=== PATIENT | male | born 1975 | race Hispanic/Latino ===

== ENCOUNTER → 2018-07-25 | Outpatient (CLI) | payer MEDICAID ==
[2018-07-25 14:22] VITALS: BP 149/94
== END | disposition home or self-care (01) ==
LOC: WHH 09:55
PROVIDERS: ATTEND Podiatrist Foot & Ankle Surgery
DX: E11.621 Type 2 diabetes mellitus with foot ulcer (principal); L97.521 Non-pressure chronic ulcer of other part of left foot limited to breakdown of skin; I10 Essential (primary) hypertension
CPT/HCPCS: 73630; 82948; 99205; A4450; A4649; A6213; L3260; G0463

== ENCOUNTER → 2018-08-08 | Outpatient (CLI) | payer MEDICAID ==
[2018-08-08 14:06] VITALS: BP 139/87
== END | disposition home or self-care (01) ==
LOC: WHH 10:00
PROVIDERS: ATTEND Podiatrist Foot & Ankle Surgery
DX: E11.621 Type 2 diabetes mellitus with foot ulcer (principal); L97.522 Non-pressure chronic ulcer of other part of left foot with fat layer exposed; E11.42 Type 2 diabetes mellitus with diabetic polyneuropathy; E11.610 Type 2 diabetes mellitus with diabetic neuropathic arthropathy; I10 Essential (primary) hypertension
CPT/HCPCS: 11042; A4649

== ENCOUNTER → 2018-08-15 | Outpatient (CLI) | payer MEDICAID ==
[2018-08-15 13:47] VITALS: BP 127/82
== END | disposition home or self-care (01) ==
LOC: WHH 10:30
PROVIDERS: ATTEND Podiatrist Foot & Ankle Surgery
DX: E11.621 Type 2 diabetes mellitus with foot ulcer (principal); L97.522 Non-pressure chronic ulcer of other part of left foot with fat layer exposed; E11.42 Type 2 diabetes mellitus with diabetic polyneuropathy; E11.610 Type 2 diabetes mellitus with diabetic neuropathic arthropathy; I10 Essential (primary) hypertension
CPT/HCPCS: 11042; A4649

== ENCOUNTER → 2018-08-22 | Outpatient (CLI) | payer MEDICAID ==
[2018-08-22 13:55] VITALS: BP 139/82
== END | disposition home or self-care (01) ==
LOC: WHH 10:00
PROVIDERS: ATTEND Podiatrist Foot & Ankle Surgery
DX: E11.621 Type 2 diabetes mellitus with foot ulcer (principal); L97.521 Non-pressure chronic ulcer of other part of left foot limited to breakdown of skin; E11.42 Type 2 diabetes mellitus with diabetic polyneuropathy; E11.610 Type 2 diabetes mellitus with diabetic neuropathic arthropathy; I10 Essential (primary) hypertension
CPT/HCPCS: 97597; A4649

== ENCOUNTER → 2018-08-29 | Outpatient (CLI) | payer MEDICAID ==
[2018-08-29 13:51] VITALS: BP 142/90
== END | disposition home or self-care (01) ==
LOC: WHH 10:40
PROVIDERS: ATTEND Podiatrist Foot & Ankle Surgery
DX: E11.621 Type 2 diabetes mellitus with foot ulcer (principal); L97.521 Non-pressure chronic ulcer of other part of left foot limited to breakdown of skin; E11.42 Type 2 diabetes mellitus with diabetic polyneuropathy; E11.610 Type 2 diabetes mellitus with diabetic neuropathic arthropathy; I10 Essential (primary) hypertension
CPT/HCPCS: 99214; A4649

== ENCOUNTER → 2018-09-12 | Outpatient (CLI) | payer MEDICAID ==
[2018-09-12 14:11] VITALS: BP 121/79
== END | disposition home or self-care (01) ==
LOC: WHH 10:45
PROVIDERS: ATTEND Podiatrist Foot & Ankle Surgery
DX: E11.621 Type 2 diabetes mellitus with foot ulcer (principal); L97.521 Non-pressure chronic ulcer of other part of left foot limited to breakdown of skin; E11.42 Type 2 diabetes mellitus with diabetic polyneuropathy; E11.610 Type 2 diabetes mellitus with diabetic neuropathic arthropathy; I10 Essential (primary) hypertension
CPT/HCPCS: 97597; 99214

== ENCOUNTER 2019-07-22 15:30 | Emergency (ER) | payer MEDICAID ==
[2019-07-22] MEDS ORDERED: SODIUM CHLORIDE IRRIG SOLUTION 1,000 ML IR ONE (15:31)
[2019-07-22] MEDS ORDERED: SODIUM CHLORIDE 0.9% 500ML 500 ML IV ONE (15:31)
[2019-07-22] MEDS ORDERED: MAG HYDROX/AL HYDROX/SIMETH ES 30 ML SUSP UDCUP ONE (15:48)
[2019-07-22] MEDS ORDERED: LIDOCAINE HCL 2% VISCOUS 15 ML UDCUP ONE (15:48)
[2019-07-22 16:15] LABS: BASOPHILS % (AUTO) 0.4 % (0.0-5.0); EOSINOPHILS % (AUTO) 0.7 % (0.0-8.0); HEMATOCRIT 35.6 % (42-54); LYMPHOCYTES % (AUTO) 33.1 % (21.0-51.0); MEAN CORPUSCULAR HEMOGLOBIN 30.9 pg (27.0-33.0); MEAN CORPUSCULAR HGB CONC 35.1 g/dL (32.0-36.0); MEAN CORPUSCULAR VOLUME 87.9 fL (79-99); MONOCYTES % (AUTO) 7.9 % (3.0-13.0); NEUTROPHILS % (AUTO) 57.8 % (40.0-77.0); PLATELET COUNT (AUTO) 212 K/uL (130-400); RED BLOOD CELL COUNT(AUTO) 4.05 MIL/uL (4.50-6.20); RED CELL DISTRIBUTION WIDTH 11.9 % (11.0-15.5); WHITE BLOOD COUNT (AUTO) 7.3 K/uL (4.8-10.8)
[2019-07-22] MEDS ORDERED: FAMOTIDINE/PF 20 MG/2 ML VIAL IV ONE (16:23)
[2019-07-22 16:32] LABS: ALBUMIN 3.3 g/dL (3.5-5.0); APPEARANCE,URINE Clear (CLEAR); BILIRUBIN,TOTAL 0.5 mg/dL (0.2-1.0); BILIRUBIN,URINE Negative (NEGATIVE); COLOR,URINE Yellow (YELLOW); CREATININE 1.3 mg/dL (0.5-1.5); GLUCOSE, URINE (UA) >=1000 mg/dL (NEGATIVE); KETONES,URINE Trace mg/dL (NEGATIVE); LEUKOCYTE ESTERASE ,URINE Negative (NEGATIVE); NITRATE,URINE Negative (NEGATIVE); OCCULT BLOOD,URINE Nonhemolyzed Trace (NEGATIVE); POTASSIUM 4.1 mmol/L (3.5-5.1); PROTEIN,URINE 300 mg/dL (NEGATIVE); TOTAL PROTEIN, SERUM 7.2 g/dL (6.0-8.3)
[2019-07-22 16:38] LABS: AMPHET/METH SCREEN,URINE NEGATIVE (NEGATIVE); BARBITURATE SCREEN, URINE NEGATIVE (NEGATIVE); BENZODIAZEPINES SCREEN,URINE POSITIVE (NEGATIVE); CANNABINOID SCREEN,URINE POSITIVE (NEGATIVE); COCAINE SCREEN,URINE NEGATIVE (NEGATIVE); OPIATE SCREEN,URINE NEGATIVE (NEGATIVE); PHENCYCLIDINE SCREEN,URINE NEGATIVE (NEGATIVE)
[2019-07-22 16:40] LABS: BACTERIA,URINE Rare /HPF (None Seen); RAPID GROUP A STREP NEGATIVE (NEGATIVE); WBC,URINE 0-1 /HPF (0-1)
[2019-07-22 16:41] LABS: SQUAMOUS EPITHELIAL CELL,UR Rare /HPF (0-2); YEAST,URINE BUDDING Rare /HPF (None Seen)
== END 2019-07-22 20:02 | disposition home or self-care (01) ==
LOC: EDH 15:30
DX: K29.00 Acute gastritis without bleeding (principal); E11.9 Type 2 diabetes mellitus without complications; I10 Essential (primary) hypertension; Z87.891 Personal history of nicotine dependence
CPT/HCPCS: 36415; 71045; 80053; 80305; 81001; 83880; 84484; 85025; 87804 ×2; 87880; 93005; 96361; 96374; 99285; J3490; J7040

== ENCOUNTER → 2019-11-06 | Outpatient (CLI) | payer MEDICAID ==
[~2019-11-06] MED LIST: LIDOCAINE HCL 4% LTA SOL 4 ML VIAL TP ONE
== END | disposition home or self-care (01) ==
LOC: WHH 08:18
PROVIDERS: ATTEND Podiatrist Foot & Ankle Surgery
DX: E11.621 Type 2 diabetes mellitus with foot ulcer (principal); L97.512 Non-pressure chronic ulcer of other part of right foot with fat layer exposed; E11.22 Type 2 diabetes mellitus with diabetic chronic kidney disease; I12.9 Hypertensive chronic kidney disease with stage 1 through stage 4 chronic kidney disease, or unspecified chronic kidney disease; N18.9 Chronic kidney disease, unspecified; E11.42 Type 2 diabetes mellitus with diabetic polyneuropathy; I10 Essential (primary) hypertension; K21.9 Gastro-esophageal reflux disease without esophagitis; I25.10 Atherosclerotic heart disease of native coronary artery without angina pectoris; E78.2 Mixed hyperlipidemia; G56.00 Carpal tunnel syndrome, unspecified upper limb; Z87.891 Personal history of nicotine dependence
CPT/HCPCS: 11042; 73630; 87076; A6209

== ENCOUNTER → 2019-11-20 | Outpatient (CLI) | payer MEDICAID ==
[~2019-11-20] MED LIST changes: +ALBU2.5V2 IH; +ALPR1TAB2 PO; +ASPI-1005 PO; +ATOR20TA65 PO; +CLIN300C9 PO; +FERR324T4 PO; +IPRNEB IH; +LEVO500T89 PO; -LIDOCAINE HCL 4% LTA SOL 4 ML VIAL TP ONE; +LINA1TAB PO; +LOSA50TA2 PO
== END | disposition home or self-care (01) ==
LOC: WHH 08:55
PROVIDERS: ATTEND Podiatrist Foot & Ankle Surgery
DX: E11.621 Type 2 diabetes mellitus with foot ulcer (principal); L97.512 Non-pressure chronic ulcer of other part of right foot with fat layer exposed; E11.22 Type 2 diabetes mellitus with diabetic chronic kidney disease; I12.9 Hypertensive chronic kidney disease with stage 1 through stage 4 chronic kidney disease, or unspecified chronic kidney disease; N18.9 Chronic kidney disease, unspecified; E11.42 Type 2 diabetes mellitus with diabetic polyneuropathy; M20.11 Hallux valgus (acquired), right foot; K21.9 Gastro-esophageal reflux disease without esophagitis; I25.10 Atherosclerotic heart disease of native coronary artery without angina pectoris; E78.2 Mixed hyperlipidemia; G56.00 Carpal tunnel syndrome, unspecified upper limb; Z87.891 Personal history of nicotine dependence
CPT/HCPCS: 11042; A6207

== ENCOUNTER → 2019-12-25 | Outpatient (CLI) | payer MEDICAID ==
[~2019-12-25] MED LIST changes: -ALBU2.5V2 IH; -ASPI-1005 PO; -ATOR20TA65 PO; -FERR324T4 PO; -IPRNEB IH; -LOSA50TA2 PO
== END | disposition home or self-care (01) ==
LOC: WHH 09:00
PROVIDERS: ATTEND Podiatrist Foot & Ankle Surgery
DX: T87.89 Other complications of amputation stump (principal); E11.621 Type 2 diabetes mellitus with foot ulcer; L97.513 Non-pressure chronic ulcer of other part of right foot with necrosis of muscle; E11.69 Type 2 diabetes mellitus with other specified complication; M86.671 Other chronic osteomyelitis, right ankle and foot; E11.22 Type 2 diabetes mellitus with diabetic chronic kidney disease; I12.9 Hypertensive chronic kidney disease with stage 1 through stage 4 chronic kidney disease, or unspecified chronic kidney disease; N18.9 Chronic kidney disease, unspecified; E11.42 Type 2 diabetes mellitus with diabetic polyneuropathy; M20.11 Hallux valgus (acquired), right foot; K21.9 Gastro-esophageal reflux disease without esophagitis; I25.10 Atherosclerotic heart disease of native coronary artery without angina pectoris; E78.2 Mixed hyperlipidemia; G56.00 Carpal tunnel syndrome, unspecified upper limb; Z87.891 Personal history of nicotine dependence; Y83.5 Amputation of limb(s) as the cause of abnormal reaction of the patient, or of later complication, without mention of misadventure at the time of the procedure
CPT/HCPCS: 99214; A6209

== ENCOUNTER → 2020-01-01 | Outpatient (CLI) | payer MEDICAID | END | disposition home or self-care (01) | LOC: WHH 09:00 | PROVIDERS: ATTEND Podiatrist Foot & Ankle Surgery | DX: T87.89 Other complications of amputation stump (principal); E11.621 Type 2 diabetes mellitus with foot ulcer; L97.512 Non-pressure chronic ulcer of other part of right foot with fat layer exposed; E11.69 Type 2 diabetes mellitus with other specified complication; M86.671 Other chronic osteomyelitis, right ankle and foot; E11.22 Type 2 diabetes mellitus with diabetic chronic kidney disease; I12.9 Hypertensive chronic kidney disease with stage 1 through stage 4 chronic kidney disease, or unspecified chronic kidney disease; N18.9 Chronic kidney disease, unspecified; E11.42 Type 2 diabetes mellitus with diabetic polyneuropathy; M20.11 Hallux valgus (acquired), right foot; K21.9 Gastro-esophageal reflux disease without esophagitis; I25.10 Atherosclerotic heart disease of native coronary artery without angina pectoris; E78.2 Mixed hyperlipidemia; G56.00 Carpal tunnel syndrome, unspecified upper limb; Z87.891 Personal history of nicotine dependence; Y83.5 Amputation of limb(s) as the cause of abnormal reaction of the patient, or of later complication, without mention of misadventure at the time of the procedure | CPT/HCPCS: 97597; A6209 ==

== ENCOUNTER → 2020-01-08 | Outpatient (CLI) | payer MEDICAID | END | disposition home or self-care (01) | LOC: WHH 08:40 | PROVIDERS: ATTEND Podiatrist Foot & Ankle Surgery | DX: E11.621 Type 2 diabetes mellitus with foot ulcer (principal); L97.516 Non-pressure chronic ulcer of other part of right foot with bone involvement without evidence of necrosis; E11.69 Type 2 diabetes mellitus with other specified complication; M86.671 Other chronic osteomyelitis, right ankle and foot; E11.22 Type 2 diabetes mellitus with diabetic chronic kidney disease; I12.9 Hypertensive chronic kidney disease with stage 1 through stage 4 chronic kidney disease, or unspecified chronic kidney disease; N18.9 Chronic kidney disease, unspecified; E11.42 Type 2 diabetes mellitus with diabetic polyneuropathy; M20.11 Hallux valgus (acquired), right foot; K21.9 Gastro-esophageal reflux disease without esophagitis; I25.10 Atherosclerotic heart disease of native coronary artery without angina pectoris; E78.2 Mixed hyperlipidemia; G56.00 Carpal tunnel syndrome, unspecified upper limb; Z87.891 Personal history of nicotine dependence | CPT/HCPCS: 99214 ==

== ENCOUNTER → 2020-01-22 | Outpatient (CLI) | payer MEDICAID ==
[~2020-01-22] MED LIST changes: +LIDOCAINE HCL 2% JELLY 5 ML TP ONE
== END | disposition home or self-care (01) ==
LOC: WHH 08:45
PROVIDERS: ATTEND Podiatrist Foot & Ankle Surgery
DX: T87.89 Other complications of amputation stump (principal); E11.621 Type 2 diabetes mellitus with foot ulcer; L97.516 Non-pressure chronic ulcer of other part of right foot with bone involvement without evidence of necrosis; E11.69 Type 2 diabetes mellitus with other specified complication; M86.671 Other chronic osteomyelitis, right ankle and foot; E11.22 Type 2 diabetes mellitus with diabetic chronic kidney disease; I12.9 Hypertensive chronic kidney disease with stage 1 through stage 4 chronic kidney disease, or unspecified chronic kidney disease; N18.9 Chronic kidney disease, unspecified; E11.42 Type 2 diabetes mellitus with diabetic polyneuropathy; M20.11 Hallux valgus (acquired), right foot; K21.9 Gastro-esophageal reflux disease without esophagitis; I25.10 Atherosclerotic heart disease of native coronary artery without angina pectoris; E78.2 Mixed hyperlipidemia; G56.00 Carpal tunnel syndrome, unspecified upper limb; Z87.891 Personal history of nicotine dependence; Y83.5 Amputation of limb(s) as the cause of abnormal reaction of the patient, or of later complication, without mention of misadventure at the time of the procedure
CPT/HCPCS: 11042; 11045; A6207

== ENCOUNTER → 2020-01-29 | Outpatient (CLI) | payer MEDICAID ==
[~2020-01-29] MED LIST changes: -LIDOCAINE HCL 2% JELLY 5 ML TP ONE
== END | disposition home or self-care (01) ==
LOC: WHH 09:00
PROVIDERS: ATTEND Podiatrist Foot & Ankle Surgery
DX: T87.89 Other complications of amputation stump (principal); E11.621 Type 2 diabetes mellitus with foot ulcer; L97.516 Non-pressure chronic ulcer of other part of right foot with bone involvement without evidence of necrosis; E11.69 Type 2 diabetes mellitus with other specified complication; M86.671 Other chronic osteomyelitis, right ankle and foot; E11.22 Type 2 diabetes mellitus with diabetic chronic kidney disease; I12.9 Hypertensive chronic kidney disease with stage 1 through stage 4 chronic kidney disease, or unspecified chronic kidney disease; N18.9 Chronic kidney disease, unspecified; E11.42 Type 2 diabetes mellitus with diabetic polyneuropathy; M20.11 Hallux valgus (acquired), right foot; K21.9 Gastro-esophageal reflux disease without esophagitis; I25.10 Atherosclerotic heart disease of native coronary artery without angina pectoris; E78.2 Mixed hyperlipidemia; G56.00 Carpal tunnel syndrome, unspecified upper limb; Z87.891 Personal history of nicotine dependence; Y83.5 Amputation of limb(s) as the cause of abnormal reaction of the patient, or of later complication, without mention of misadventure at the time of the procedure
CPT/HCPCS: 99214; A6207

== ENCOUNTER → 2020-02-12 | Outpatient (CLI) | payer MEDICAID | END | disposition home or self-care (01) | LOC: WHH 09:15 | PROVIDERS: ATTEND Podiatrist Foot & Ankle Surgery | DX: T87.89 Other complications of amputation stump (principal); E11.621 Type 2 diabetes mellitus with foot ulcer; L97.516 Non-pressure chronic ulcer of other part of right foot with bone involvement without evidence of necrosis; E11.69 Type 2 diabetes mellitus with other specified complication; M86.671 Other chronic osteomyelitis, right ankle and foot; E11.22 Type 2 diabetes mellitus with diabetic chronic kidney disease; I12.9 Hypertensive chronic kidney disease with stage 1 through stage 4 chronic kidney disease, or unspecified chronic kidney disease; N18.9 Chronic kidney disease, unspecified; E11.42 Type 2 diabetes mellitus with diabetic polyneuropathy; M20.11 Hallux valgus (acquired), right foot; K21.9 Gastro-esophageal reflux disease without esophagitis; I25.10 Atherosclerotic heart disease of native coronary artery without angina pectoris; E78.5 Hyperlipidemia, unspecified; G56.00 Carpal tunnel syndrome, unspecified upper limb; Z87.891 Personal history of nicotine dependence; Y83.5 Amputation of limb(s) as the cause of abnormal reaction of the patient, or of later complication, without mention of misadventure at the time of the procedure | CPT/HCPCS: 11042; 11045; A6207 ==

== ENCOUNTER → 2020-02-19 | Outpatient (CLI) | payer MEDICAID | END | disposition home or self-care (01) | LOC: WHH 08:45 | PROVIDERS: ATTEND Podiatrist Foot & Ankle Surgery | DX: E11.621 Type 2 diabetes mellitus with foot ulcer (principal); L97.516 Non-pressure chronic ulcer of other part of right foot with bone involvement without evidence of necrosis; E11.69 Type 2 diabetes mellitus with other specified complication; M86.671 Other chronic osteomyelitis, right ankle and foot; E11.22 Type 2 diabetes mellitus with diabetic chronic kidney disease; I12.9 Hypertensive chronic kidney disease with stage 1 through stage 4 chronic kidney disease, or unspecified chronic kidney disease; N18.9 Chronic kidney disease, unspecified; E11.42 Type 2 diabetes mellitus with diabetic polyneuropathy; M20.11 Hallux valgus (acquired), right foot; K21.9 Gastro-esophageal reflux disease without esophagitis; I25.10 Atherosclerotic heart disease of native coronary artery without angina pectoris; E78.5 Hyperlipidemia, unspecified; G56.00 Carpal tunnel syndrome, unspecified upper limb; Z87.891 Personal history of nicotine dependence | CPT/HCPCS: 87070; 87077 ×3; 87186 ×3; 99214; A6248 ==

== ENCOUNTER → 2020-02-26 | Outpatient (CLI) | payer MEDICAID ==
[~2020-02-26] MED LIST changes: +CLIN300C10 PO; -CLIN300C9 PO; +LIDOCAINE HCL 2% JELLY 5 ML TP ONE
== END | disposition home or self-care (01) ==
LOC: WHH 09:25
PROVIDERS: ATTEND Podiatrist Foot & Ankle Surgery
DX: E11.621 Type 2 diabetes mellitus with foot ulcer (principal); L97.516 Non-pressure chronic ulcer of other part of right foot with bone involvement without evidence of necrosis; E11.69 Type 2 diabetes mellitus with other specified complication; M86.671 Other chronic osteomyelitis, right ankle and foot; E11.22 Type 2 diabetes mellitus with diabetic chronic kidney disease; I12.9 Hypertensive chronic kidney disease with stage 1 through stage 4 chronic kidney disease, or unspecified chronic kidney disease; N18.9 Chronic kidney disease, unspecified; E11.42 Type 2 diabetes mellitus with diabetic polyneuropathy; M20.11 Hallux valgus (acquired), right foot; K21.9 Gastro-esophageal reflux disease without esophagitis; I25.10 Atherosclerotic heart disease of native coronary artery without angina pectoris; E78.5 Hyperlipidemia, unspecified; G56.00 Carpal tunnel syndrome, unspecified upper limb; Z87.891 Personal history of nicotine dependence
CPT/HCPCS: 11042; 11045; 87070; 87077; 87186

== ENCOUNTER → 2020-03-11 | Outpatient (CLI) | payer MEDICAID | END | disposition home or self-care (01) | LOC: WHH 09:00 | PROVIDERS: ATTEND Podiatrist Foot & Ankle Surgery | DX: E11.621 Type 2 diabetes mellitus with foot ulcer (principal); L97.516 Non-pressure chronic ulcer of other part of right foot with bone involvement without evidence of necrosis; E11.69 Type 2 diabetes mellitus with other specified complication; M86.671 Other chronic osteomyelitis, right ankle and foot; E11.22 Type 2 diabetes mellitus with diabetic chronic kidney disease; I12.9 Hypertensive chronic kidney disease with stage 1 through stage 4 chronic kidney disease, or unspecified chronic kidney disease; N18.9 Chronic kidney disease, unspecified; E11.42 Type 2 diabetes mellitus with diabetic polyneuropathy; M20.11 Hallux valgus (acquired), right foot; K21.9 Gastro-esophageal reflux disease without esophagitis; I25.10 Atherosclerotic heart disease of native coronary artery without angina pectoris; E78.5 Hyperlipidemia, unspecified; G56.00 Carpal tunnel syndrome, unspecified upper limb; Z87.891 Personal history of nicotine dependence | CPT/HCPCS: 99214 ==

== ENCOUNTER → 2020-03-25 | Outpatient (CLI) | payer MEDICAID | END | disposition home or self-care (01) | LOC: WHH 09:15 | PROVIDERS: ATTEND Podiatrist Foot & Ankle Surgery | DX: E11.621 Type 2 diabetes mellitus with foot ulcer (principal); L97.516 Non-pressure chronic ulcer of other part of right foot with bone involvement without evidence of necrosis; L84 Corns and callosities; E11.69 Type 2 diabetes mellitus with other specified complication; M86.671 Other chronic osteomyelitis, right ankle and foot; E11.22 Type 2 diabetes mellitus with diabetic chronic kidney disease; I12.9 Hypertensive chronic kidney disease with stage 1 through stage 4 chronic kidney disease, or unspecified chronic kidney disease; N18.9 Chronic kidney disease, unspecified; E11.42 Type 2 diabetes mellitus with diabetic polyneuropathy; M20.11 Hallux valgus (acquired), right foot; K21.9 Gastro-esophageal reflux disease without esophagitis; I25.10 Atherosclerotic heart disease of native coronary artery without angina pectoris; E78.5 Hyperlipidemia, unspecified; G56.00 Carpal tunnel syndrome, unspecified upper limb; Z87.891 Personal history of nicotine dependence | CPT/HCPCS: 97597; A6207 ==

== ENCOUNTER → 2020-04-22 | Outpatient (CLI) | payer MEDICAID | END | disposition home or self-care (01) | LOC: WHH 09:00 | PROVIDERS: ATTEND Podiatrist Foot & Ankle Surgery | DX: E11.621 Type 2 diabetes mellitus with foot ulcer (principal); L97.516 Non-pressure chronic ulcer of other part of right foot with bone involvement without evidence of necrosis; L84 Corns and callosities; E11.69 Type 2 diabetes mellitus with other specified complication; M86.671 Other chronic osteomyelitis, right ankle and foot; E11.22 Type 2 diabetes mellitus with diabetic chronic kidney disease; I12.9 Hypertensive chronic kidney disease with stage 1 through stage 4 chronic kidney disease, or unspecified chronic kidney disease; N18.9 Chronic kidney disease, unspecified; E11.42 Type 2 diabetes mellitus with diabetic polyneuropathy; M20.11 Hallux valgus (acquired), right foot; K21.9 Gastro-esophageal reflux disease without esophagitis; I25.10 Atherosclerotic heart disease of native coronary artery without angina pectoris; E78.5 Hyperlipidemia, unspecified; G56.00 Carpal tunnel syndrome, unspecified upper limb; Z87.891 Personal history of nicotine dependence | CPT/HCPCS: 11043; A6207 ==

== ENCOUNTER → 2020-05-20 | Outpatient (CLI) | payer MEDICAID ==
[~2020-05-20] MED LIST changes: -LIDOCAINE HCL 2% JELLY 5 ML TP ONE
== END | disposition home or self-care (01) ==
LOC: WHH 10:30
PROVIDERS: ATTEND Podiatrist Foot & Ankle Surgery
DX: E11.621 Type 2 diabetes mellitus with foot ulcer (principal); L97.518 Non-pressure chronic ulcer of other part of right foot with other specified severity; L84 Corns and callosities; E11.69 Type 2 diabetes mellitus with other specified complication; M86.671 Other chronic osteomyelitis, right ankle and foot; E11.22 Type 2 diabetes mellitus with diabetic chronic kidney disease; I12.9 Hypertensive chronic kidney disease with stage 1 through stage 4 chronic kidney disease, or unspecified chronic kidney disease; N18.9 Chronic kidney disease, unspecified; E11.42 Type 2 diabetes mellitus with diabetic polyneuropathy; M20.11 Hallux valgus (acquired), right foot; K21.9 Gastro-esophageal reflux disease without esophagitis; I25.10 Atherosclerotic heart disease of native coronary artery without angina pectoris; E78.5 Hyperlipidemia, unspecified; G56.00 Carpal tunnel syndrome, unspecified upper limb; Z87.891 Personal history of nicotine dependence
CPT/HCPCS: 99214

== ENCOUNTER → 2020-07-22 | Outpatient (CLI) | payer MEDICAID | END | disposition home or self-care (01) | LOC: WHH 09:25 | PROVIDERS: ATTEND Podiatrist Foot & Ankle Surgery | DX: E11.621 Type 2 diabetes mellitus with foot ulcer (principal); L97.512 Non-pressure chronic ulcer of other part of right foot with fat layer exposed; L84 Corns and callosities; E11.42 Type 2 diabetes mellitus with diabetic polyneuropathy; E11.69 Type 2 diabetes mellitus with other specified complication; M86.671 Other chronic osteomyelitis, right ankle and foot; E11.22 Type 2 diabetes mellitus with diabetic chronic kidney disease; I12.9 Hypertensive chronic kidney disease with stage 1 through stage 4 chronic kidney disease, or unspecified chronic kidney disease; N18.9 Chronic kidney disease, unspecified; M20.11 Hallux valgus (acquired), right foot; K21.9 Gastro-esophageal reflux disease without esophagitis; I25.10 Atherosclerotic heart disease of native coronary artery without angina pectoris; E78.5 Hyperlipidemia, unspecified; G56.00 Carpal tunnel syndrome, unspecified upper limb; Z87.891 Personal history of nicotine dependence | CPT/HCPCS: 11042; 73630; 87070; 87077 ×2; 87186 ×2; A4450; A6207; L3260 ==

== ENCOUNTER → 2020-07-22 | Outpatient (CLI) | payer MEDICAID | END | disposition home or self-care (01) | LOC: RAH 11:20 | PROVIDERS: ATTEND Podiatrist Foot & Ankle Surgery | DX: E11.621 Type 2 diabetes mellitus with foot ulcer (principal) | CPT/HCPCS: 73630 ==

== ENCOUNTER → 2020-08-05 | Outpatient (CLI) | payer MEDICAID | END | disposition home or self-care (01) | LOC: WHH 08:55 | PROVIDERS: ATTEND Podiatrist Foot & Ankle Surgery | DX: T87.89 Other complications of amputation stump (principal); E11.621 Type 2 diabetes mellitus with foot ulcer; L97.512 Non-pressure chronic ulcer of other part of right foot with fat layer exposed; L97.521 Non-pressure chronic ulcer of other part of left foot limited to breakdown of skin; L84 Corns and callosities; E11.42 Type 2 diabetes mellitus with diabetic polyneuropathy; E11.69 Type 2 diabetes mellitus with other specified complication; M86.671 Other chronic osteomyelitis, right ankle and foot; E11.22 Type 2 diabetes mellitus with diabetic chronic kidney disease; I12.9 Hypertensive chronic kidney disease with stage 1 through stage 4 chronic kidney disease, or unspecified chronic kidney disease; N18.9 Chronic kidney disease, unspecified; M20.11 Hallux valgus (acquired), right foot; K21.9 Gastro-esophageal reflux disease without esophagitis; I25.10 Atherosclerotic heart disease of native coronary artery without angina pectoris; E78.5 Hyperlipidemia, unspecified; G56.00 Carpal tunnel syndrome, unspecified upper limb; Z87.891 Personal history of nicotine dependence; Y83.5 Amputation of limb(s) as the cause of abnormal reaction of the patient, or of later complication, without mention of misadventure at the time of the procedure | CPT/HCPCS: 11042; A6207 ==